=== PATIENT | male | born 1965 | race African-American/Black ===

== ENCOUNTER → 2020-03-12 | Outpatient (CLI) | payer BC, OTHER ==
[~2020-03-12] MED LIST: HCTZ OR; LEVOTHYROXIN0.125 M2 PO; LOPRESSOR OR; NOHOMEMEDICATIONS; ZOCOR OR; [UNRECOGNIZED DRUG - OTHER] OR
== END ==
LOC: CAT 14:02
PROVIDERS: ATTEND Nurse Practitioner
DX: R55 Syncope and collapse (principal)

== ENCOUNTER → 2020-03-23 | Outpatient (CLI) | payer BC, OTHER | LOC: SJCVCIMAG 10:14 | PROVIDERS: ATTEND Internal Medicine Cardiovascular Disease | DX: R55 Syncope and collapse (principal); I10 Essential (primary) hypertension; E78.5 Hyperlipidemia, unspecified ==